=== PATIENT | male | born 2000 | race African-American/Black ===

== ENCOUNTER 2020-05-04 09:52 | Emergency (ER) | payer OTHER, SELFPAY ==
[2020-05-04] MEDS ORDERED: Morphine 4 MG/ML VIAL ONE (10:30)
[2020-05-04] MEDS ORDERED: Morphine 2 MG/ML VIAL ONE (10:30)
[2020-05-04] MEDS ORDERED: Ketorolac Tromethamine 30 MG/ML VIAL ONE (10:31)
== END 2020-05-04 11:10 | disposition home or self-care (01) ==
LOC: MADERS 09:52
DX: M62.830 Muscle spasm of back (principal)
CPT/HCPCS: 96372; 99283; J1885; J2270